=== PATIENT | male | born 1950 | race Caucasian/White ===

== ENCOUNTER 2022-07-07 11:35 | Day surgery (SDC) | payer MEDICARE ==
[~2022-07-07] VITALS: Ht 170.2 cm; Wt 99.8 kg
[~2022-07-07 11:35] MED LIST: ACETYLCHOLINE OPHTH SOLN 1% 2ML (MIOCHOL-E) As Ordered ONE; BSS IRRIG/VANCO(10MG)/TOBRA(5MG)/EPINEPH(1:1000-0.5CC)500ML BAG-ORONLY IR ONE; CARB25TA9 PO; CYCLOPENTOLATE 1% OPHTH SOLN 2 ML BTL OS SCH; ELIQ5TAB PO; ERGO500029 PO; HYDR-3490 PO; LIDOCAINE 1% SDV 5ML VIAL As Ordered ONE; LIDOCAINE 3.5 % 1ML OPHTH TOPICAL GEL OU ONE; LISI5TAB11 PO; MEMA10TA19 PO; MESA0.37 PO; METO1TAB7 PO; OFLOXACIN 0.3 % (OCUFLOX) OPTH SOL 5ML OS ONE; PHENYLEPHRINE 2.5% OPHTH SOL 2ML OS SCH; PHENYLEPHRINE HCL 10 % OPHTH. SOL 5ML OS PRN; ROSU20TA5 PO; TROPICAMIDE 1% OPHTH SOLN 2ML OS SCH
[2022-07-07] MEDS ORDERED: CEFUROXIME 1MG/0.1ML INTRACAMERAL INJ As Ordered ONE (13:05)
[2022-07-07] MEDS ORDERED: MIDAZOLAM INJ 2MG/2ML VIAL (J2250 PER 1MG) As Ordered ONE (13:19)
[2022-07-07] MEDS ORDERED: fentaNYL 100 MCG/2 ML INJECTION As Ordered ONE (13:19)
[2022-07-07 14:20] VITALS: BP 110/71
== END 2022-07-07 14:35 | disposition home or self-care (01) ==
LOC: M SDC 11:35
PROVIDERS: ATTEND Ophthalmology
DX: H25.12 Age-related nuclear cataract, left eye (principal); I10 Essential (primary) hypertension; Z95.0 Presence of cardiac pacemaker; E78.5 Hyperlipidemia, unspecified; Z87.891 Personal history of nicotine dependence; Z86.718 Personal history of other venous thrombosis and embolism; Z79.01 Long term (current) use of anticoagulants; Z79.899 Other long term (current) drug therapy; G20 Parkinson's disease
CPT/HCPCS: 66984; J0697; J2250; J3010; V2632

== ENCOUNTER 2022-07-14 08:53 | Day surgery (SDC) | payer MEDICARE ==
[~2022-07-14] VITALS: Ht 170.2 cm; Wt 102.2 kg
[~2022-07-14 08:53] MED LIST changes: -ACETYLCHOLINE OPHTH SOLN 1% 2ML (MIOCHOL-E) As Ordered ONE; -BSS IRRIG/VANCO(10MG)/TOBRA(5MG)/EPINEPH(1:1000-0.5CC)500ML BAG-ORONLY IR ONE; +CEFUROXIME 1MG/0.1ML INTRACAMERAL INJ As Ordered ONE; -CYCLOPENTOLATE 1% OPHTH SOLN 2 ML BTL OS SCH; +DUOVISC (0.50ML VISCOAT/0.85ML PROVISC) OPHTH KIT As Ordered ONE; -LIDOCAINE 3.5 % 1ML OPHTH TOPICAL GEL OU ONE; +MIDAZOLAM INJ 2MG/2ML VIAL (J2250 PER 1MG) As Ordered ONE; -OFLOXACIN 0.3 % (OCUFLOX) OPTH SOL 5ML OS ONE; -PHENYLEPHRINE 2.5% OPHTH SOL 2ML OS SCH; -PHENYLEPHRINE HCL 10 % OPHTH. SOL 5ML OS PRN; +POVIDONE-IODINE 5% OPHTH PREP SOL 30ML As Ordered ONE; -TROPICAMIDE 1% OPHTH SOLN 2ML OS SCH
[2022-07-14] MEDS: CYCLOPENTOLATE 1% OPHTH SOLN 2 ML BTL OD SCH ×2 (10:06→10:12)
[2022-07-14] MEDS: PHENYLEPHRINE 2.5% OPHTH SOL 2ML OD SCH ×2 (10:06→10:12)
[2022-07-14] MEDS: TROPICAMIDE 1% OPHTH SOLN 2ML OD SCH ×2 (10:06→10:12)
[2022-07-14 11:18] VITALS: BP 104/74
[2022-07-14] MEDS ORDERED: LIDOCAINE 3.5 % 1ML OPHTH TOPICAL GEL OU ONE (11:30)
[2022-07-14] MEDS ORDERED: BSS IRRIG/VANCO(10MG)/TOBRA(5MG)/EPINEPH(1:1000-0.5CC)500ML BAG-ORONLY IR ONE (11:30)
[2022-07-14] MEDS ORDERED: OFLOXACIN 0.3 % (OCUFLOX) OPTH SOL 5ML OD ONE (11:30)
[2022-07-14] MEDS ORDERED: PHENYLEPHRINE HCL 10 % OPHTH. SOL 5ML OD PRN (11:30)
== END 2022-07-14 11:45 | disposition home or self-care (01) ==
LOC: M SDC 08:53
PROVIDERS: ATTEND Ophthalmology
DX: H25.11 Age-related nuclear cataract, right eye (principal); I10 Essential (primary) hypertension; E78.5 Hyperlipidemia, unspecified; Z95.0 Presence of cardiac pacemaker; Z87.891 Personal history of nicotine dependence; Z86.718 Personal history of other venous thrombosis and embolism; Z79.01 Long term (current) use of anticoagulants; Z79.899 Other long term (current) drug therapy
CPT/HCPCS: 66984; J0697; J2250; V2632